=== PATIENT | female | born 1950 | race Caucasian/White ===

== ENCOUNTER → 2017-07-22 | Outpatient (CLI) | payer MEDICARE, OTHER ==
--- NOTE | 2017-07-23 14:08 | MAM ---
EXAM DESCRIPTION: 3D Screening BILATERAL : Digital Mammography. CLINICAL HISTORY: 66 years Female SCREENING . No complaints. No family history breast cancer. Postmenopausal. No HRT. COMPARISON: 2-D digital bilateral screening study on 02/26/2016. Report from prior examination also reviewed. TECHNIQUE: Bilateral CC and MLO projection full-field images, 3-D tomosynthesis digital mammographic technique. Also bilateral synthesized CC/ MLO full-field images. CAD not utilized. FINDINGS: The breast parenchymal density pattern is: Scattered areas of fibroglandular density. No skin thickening or nipple retraction bilateral solitary microcalcifications. Intramammary lymph node in the right axillary tail. No focal, stellate mass or density, focal asymmetry , and no suspicious microcalcifications bilaterally. Stable mammograms compared to prior study, taking into account differences in mammographic technique IMPRESSION: BI-RADS CATEGORY: 2 - BENIGN FINDINGS. FOLLOW UP: Routine digital bilateral screening, one year interval from July 2017. Written communication explaining the IMPRESSION and follow-up, will be mailed to the patient and referring health care provider. According to the [employer], yearly mammograms are recommended starting at age 40 and continuing as long as a woman is in good health. Any breast change noted on a breast self-exam should be reported promptly to the patient's healthcare provider. Breast MRI is recommended for women with an approximately 20-25% or greater lifetime risk of breast cancer, including women with a strong family history of breast or ovarian cancer and women who have been treated for Hodgkin's disease. A negative mammographic report should not delay tissue diagnosis in patients with significant clinical history or physical findings. Extremely dense breast tissue limits the sensitivity of digital mammography. Electronically signed by: Gabriel Mccall MD 07/23/2017 2:06 PM CDT
== END ==
LOC: MAMMO 08:00
PROVIDERS: ATTEND Family Medicine
DX: Z12.31 Encounter for screening mammogram for malignant neoplasm of breast (principal)

== ENCOUNTER 2020-02-26 13:50 | Emergency (ER) | payer BC, OTHER ==
--- NOTE | 2020-02-26 14:19 | ED.PDOC ---
History of Present Illness - General Chief Complaint: General Time Seen by Provider: 02/26/20 14:09 Source: patient, RN notes reviewed, Vital Signs reviewed - History of Present Illness Initial Comments: This is a 69-year-old female with longstanding history of hypertension, hyperlipidemia, presenting to the emergency department with 1 week of body aches, malaise, nasal congestion, as well as loss of taste and smell. She is c oncerned symptoms may be related to COVID-19. She has a granddaughter who will be traveling to [place] next week. She denies any known contacts or COVID-19 exposures. She denies any fever, cough, vomiting, or diarrhea. She is taken Tylenol with minimal improvement. She denies any shortness of breath at this time. Allergies/Adverse Reactions: Allergies Codeine Allergy (Verified 09/16/15 17:04) Vomitting Penicillins Allergy (Verified 09/16/15 17:04) Rash Sulfa Antibiotics Allergy (Verified 09/16/15 17:04) Rash Home Medications: Ambulatory Orders Atenolol & Chlorthalidone [Atenolol/Chlorthalidone 100-25 mg] 1 tab PO DAILY 09/16/15 Esomeprazole Magnesium [Nexium] 40 mg PO DAILY 09/16/15 Meloxicam [Mobic] 7.5 mg PO JANET-OTH-DAY 09/16/15 amLODIPine BESYLATE [Norvasc] 5 mg PO DAILY #30 tab 09/16/15 Albuterol Sulfate [Albuterol Sulfate Hfa] 1 - 2 puff INH Q4H PRN #1 aer 02/26/20 Benzonatate Perles [Tessalon Perles] 100 - 200 mg PO Q6H PRN #20 cap 02/26/20 Ondansetron Odt [Zofran ODT] 4 - 8 mg PO Q6HR PRN #15 tab 02/26/20 Review of Systems - Review of Systems Constitutional: States: malaise, weakness - Generalized. Denies: chills, fever EENTM: States: nose congestion. Denies: ear pain, throat pain Respiratory: Denies: cough, short of breath, wheezing Cardiology: Denies: chest pain, edema Gastrointestinal/Abdominal: Denies: abdominal pain, diarrhea, nausea, vomiting Genitourinary: Denies: dysuria, hematuria Musculoskeletal: Denies: back pain, joint pain, muscle stiffness, neck pain Skin: States: no symptoms reported Neurological: Denies: paresthesia, tingling, weakness Endocrine: States: no symptoms reported Hematologic/Lymphatic: States: no symptoms reported Past Medical History (General) - Patient Medical History Hx Stroke: No Hx Congestive Heart Failure: No Hx Hypertension: Yes Hx Diabetes: No Hx Gastroesophageal Reflux: Yes - Vaccination History Hx Influenza Vaccination: Yes - 2014 Hx Pneumococcal Vaccination: Yes - 2013 - Social History Hx Tobacco Use: Yes - Quit 1979; had smoked for about 2 years Family Medical History - Family History Father Living Status: Cause of : [place] Physical Exam - Physical Exam General Appearance: Alert, Comfortable Ears, Nose, Throat: hearing grossly normal, normal ENT inspection Respiratory: chest non-tender, lungs clear, normal breath sounds, no respiratory distress Cardiovascular/Chest: normal peripheral pulses, regular rate, rhythm, no edema, no gallop, no JVD Gastrointestinal/Abdominal: non tender, soft Extremity: normal range of motion, non-tender, normal inspection, no pedal edema Neurologic: alert, normal mood/affect, oriented x 3 Skin Exam: normal color, warm/dry Progress - Progress Progress: 02/26/20 14:36 Respiratory viral panel pending at the time of discharge 02/26/20 14:57 Rechecked. Discussed x-ray findings and pending respiratory viral panel. Patient was given strict warnings to quarantine at home for 2 weeks and the onset of her symptoms if Covid test is positive. Recommended symptom control if other viral. Discussed plan for symptomatic treatment with Zofran, albuterol, Tessalon as needed. Strict warnings given to return the emergency room for shortness of breath, changes in mental status, vomiting, or any other concerns. All questions answered, patient comfortable with plan for discharge. DDx: COVID-19 versus other viral URI, pneumonia MDM: Well-appearing, normal O2 sats, no respiratory distress. Patient reports anosmia and dysgeusia concerning for possible COVID-19. No shortness of breath, no vomiting, no diarrhea. Her vital signs are acceptable. There is no indication for extensive work-up for admission at this time. Discussed possibility of COVID-19 infection, recommended symptomatic treatment at this time. Chest x-ray is clear. Strict warnings given to return for worsening. Gus Stone DO [facility] #[id number] - Results/Orders Results/Orders: Chest x-ray reviewed personally by me at 2:35 PM. No infiltrates, no pneumothorax. Bilateral shoulder prostheses. XR CHEST 1 VIEW CLINICAL STATEMENT: Body aches, COVID like symptoms COMPARISON: None FINDINGS: Heart is mildly enlarged. There is no focal lung consolidation or pleural effusion. No evidence of pulmonary edema or pneumothorax. Bilateral shoulder arthroplasty. Severe degenerative changes of acromioclavicular joint. Left acromioclavicular postoperative changes suspected. IMPRESSION: No acute cardiopulmonary disease. Electronically signed by: Stevenson Ritter MD 02/26/2020 2:44 PM CDT Departure - Departure Clinical Impression: Viral upper respiratory tract infection, Malaise and fatigue, Suspected COVID- 19 virus infection Disposition: Discharge to Home or Self Care Condition: Good Departure Forms: ED Discharge - Pt. Copy, Patient Portal Self Enrollment Diet: resume usual diet Activity: increase activity as tolerated Referrals: VICKI LOPEZ [Primary Care Provider] - 1-2 Weeks Prescriptions: Ondansetron Odt [Zofran ODT] 4 - 8 mg PO Q6HR PRN #15 tab PRN Reason: Nausea Albuterol Sulfate [Albuterol Sulfate Hfa] 1 - 2 puff INH Q4H PRN #1 aer PRN Reason: Shortness Of Breath Benzonatate Perles [Tessalon Perles] 100 - 200 mg PO Q6H PRN #20 cap PRN Reason: Cough Home Medications: Ambulatory Orders Atenolol & Chlorthalidone [Atenolol/Chlorthalidone 100-25 mg] 1 tab PO DAILY 09/16/15 Esomeprazole Magnesium [Nexium] 40 mg PO DAILY 09/16/15 Meloxicam [Mobic] 7.5 mg PO JANET-OTH-DAY 09/16/15 amLODIPine BESYLATE [Norvasc] 5 mg PO DAILY #30 tab 09/16/15 Albuterol Sulfate [Albuterol Sulfate Hfa] 1 - 2 puff INH Q4H PRN #1 aer 02/26/20 Benzonatate Perles [Tessalon Perles] 100 - 200 mg PO Q6H PRN #20 cap 02/26/20 Ondansetron Odt [Zofran ODT] 4 - 8 mg PO Q6HR PRN #15 tab 02/26/20 Additional Instructions: Drink plenty of fluids. If your Covid test returns positive, you will need to quarantine at home a minimum of 14 days from the onset of your symptoms. Return to the emergency room immediately for shortness of breath, confusion, vomiting, or any other concerns
--- NOTE | 2020-02-26 14:46 | RAD ---
XR CHEST 1 VIEW CLINICAL STATEMENT: Body aches, COVID like symptoms COMPARISON: None FINDINGS: Heart is mildly enlarged. There is no focal lung consolidation or pleural effusion. No evidence of pulmonary edema or pneumothorax. Bilateral shoulder arthroplasty. Severe degenerative changes of acromioclavicular joint. Left acromioclavicular postoperative changes suspected. IMPRESSION: No acute cardiopulmonary disease. Electronically signed by: Stevenson Ritter MD 02/26/2020 2:44 PM CDT
[2020-02-26 14:53] VITALS: TEMP 97.5
[2020-02-26 15:09] VITALS: BP 137/86; O2SAT 99
== END 2020-02-26 14:55 | disposition home or self-care (01) ==
LOC: ER 13:50
DX: U07.1 COVID-19 (principal); J06.9 Acute upper respiratory infection, unspecified; R53.81 Other malaise; Z20.828 Contact with and (suspected) exposure to other viral communicable diseases; I10 Essential (primary) hypertension; K21.9 Gastro-esophageal reflux disease without esophagitis; Z87.891 Personal history of nicotine dependence

== ENCOUNTER → 2020-05-15 | Outpatient (CLI) | payer MEDICARE, OTHER ==
--- NOTE | 2020-05-16 16:25 | MAM ---
EXAM DESCRIPTION: 3D Screening BILATERAL : Digital Mammography. CLINICAL HISTORY: 69 years Female SCREENING . No complaints and no family history of breast cancer. Menarche age 10. Childbirth age 14. Menopause age 52. No HRT.. Lifetime risk of developing breast cancer (Tyrer-Cuzick model)(%): 3.5. COMPARISON: Bilateral screening digital breast tomosynthesis July 2017. TECHNIQUE: Bilateral CC and MLO projection full-field images, digital tomosynthesis mammographic technique. Bilateral digital 2-D full-field MLO images. CAD available for 2-D images. FINDINGS: The breast parenchymal density pattern is: Scattered areas of fibroglandular density. Intramammary lymph node. Bilateral groups of benign type calcifications. Vascular calcifications. Posterior left breast and calcifications are stable. No skin thickening or nipple retraction No new focal, stellate mass or density, focal asymmetry , and no suspicious microcalcifications bilaterally. Stable mammograms compared to prior study. IMPRESSION: Benign exam. BIRAD CATEGORY: 2 BENIGN FINDINGS. RECOMMENDATIONS: FOLLOW UP: Routine digital bilateral mammographic screening, one year interval from May 2020. Written communication explaining the IMPRESSION and follow-up, will be mailed to the patient and referring health care provider. According to the [employer], yearly mammograms are recommended starting at age 40 and continuing as long as a woman is in good health. Any breast change noted on a breast self-exam should be reported promptly to the patient's healthcare provider. Breast MRI is recommended for women with an approximately 20-25% or greater lifetime risk of breast cancer, including women with a strong family history of breast or ovarian cancer and women who have been treated for Hodgkin's disease. A negative mammographic report should not delay tissue diagnosis in patients with significant clinical history or physical findings. Extremely dense breast tissue limits the sensitivity of digital mammography. Electronically signed by: Gabriel Mccall MD 05/16/2020 4:23 PM LEGAL CONSULTANT
== END ==
LOC: MAMMO 12:58
PROVIDERS: ATTEND Family Medicine
DX: Z12.31 Encounter for screening mammogram for malignant neoplasm of breast (principal)